=== PATIENT | female | born 1955 | race Caucasian/White ===

== ENCOUNTER 2018-08-18 11:49 | Emergency (ER) | payer MEDICARE ==
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
[2018-08-18 12:34] VITALS: BP 170/100
--- OUTSIDE RECORDS SUMMARY | 2018-08-18 12:36 | XMS REPORT | Continuity of Care Document ---
:1955 External Reference #:[id number] Author Name Nina Turner Care Team Providers Name Role Phone Suly Agarwal MD Primary Care Physician Unavailable Payers Date Identification Numbers Payment Provider Subscriber Effective: 2016 Policy Number: [id number] [employer] Toy Gumaer PayID: [id number] [address] [place] [address] Effective: 2012 Policy Number: [id number] Medicare Blue Ppo Toy Akers Expires: 2016 PayID: [id number] [address] [address] [place] [address] Effective: 2011 Policy Number: [id number] Medicare Blue Ppo Toy Gumaer Expires: 2012 PayID: [id number] [address] [address] [place] [address] Problems Active Problems Provider Date Morbid obesity Lizet Almendarez M.D. Onset: 10/02/2011 Lymphedema Lizet Almendarez M.D. Onset: 10/02/2011 Arthralgia of the ankle and/or foot Lizet Almendarez M.D. Onset: 10/02/2011 Impaired fasting glycaemia Lizet Almendarez M.D. Onset: 12/16/2011 Pure hypercholesterolemia Lizet Almendarez M.D. Onset: 12/16/2011 Neuromyelitis optica Bonnie Harry M.D. Onset: 09/08/2014 Malignant tumor of thyroid gland Bonnie Harry M.D. Onset: 09/08/2014 Obstructive sleep apnea syndrome Larisa Bowman MD Onset: 05/20/2016 Family History Date Family Member(s) Observation Comments Father due to IA () Mother due to Breast Cancer () - metastasis Siblings 1 1 brother- Social History Type Date Description Comments Sex Unknown Marital Status Occupation Disabled ETOH Use Drinks 3 Alcoholic Beverages Per Week Tobacco Use Start: Unknown End: Patient is a former Smoked for 5 yrs Unknown smoker quit in 1989 Recreational Drug Use Denies Drug Use Smoking Status Reviewed: 08/06/18 Patient is a former Smoked for 5 yrs smoker quit in 1989 Exercise Type/Frequency Does not exercise Allergies, Adverse Reactions, Alerts Active Allergies Reaction Severity Comments Date Sulfa high temp Moderate 10/02/2011 Rocephin low temp, black urine, turned Severe 10/02/2011 blue Heparin bruising Moderate 10/02/2011 Codeine vomiting Moderate 10/02/2011 Cephalosporins BP drop, blue lips 06/19/2016 Cellcept lymphadema 07/04/2016 Medications Active Medications SIG Qnty Indications Ordering Date Provider Levothyroxine Sodium 1 by mouth every Lan S. 07/03/2016 day Palacio, DO FACC 50mcg Tablets Oxygen please use o2 at 1units Larisa Bowman, 06/14/2016 Misc 2l/min during MD exertion Magnesium liquid by mouth Unknown 05/17/2016 600mg every day Digestive Aid three times a day Unknown B Complex 1 by mouth every Unknown Capsules day Ashwagandha every day Unknown 500mg Capsules Selenium 4 tablet a day Unknown 50mcg Tablets Ginkgo Biloba Extract takes occasionally Unknown 40mg Capsules Silica 3 caps po once Unknown 12.5mg Capsules daily Chromium 1 tab po tid Unknown Vitamin D3 Maximum 2 by mouth every 8caps Unknown Strength day 5000Unit Capsules Phoenix 3-6-9 Complex once daily Unknown Capsules History Medications Selenium does not know Unknown 05/17/2016 - Capsules dose 06/19/2016 Levoxyl one by mouth Unknown 05/17/2016 - 50mcg Tablets once daily 06/19/2016 Iodine Strong (Lugol's) 20 gtt po daily Unknown - Solution 05/17/2016 Apricot Seed 30 seeds po Unknown - daily 05/17/2016 Nystatin apply twice a Unknown - Powder day until rash 07/03/2016 clears Bupropion HCL 1 by mouth once Unknown - 75mg Tablets a day 07/03/2016 Curcumin Extract gelcap daily Unknown - 95% Powder 04/08/2018 Levothyroxine Sodium one by mouth Unknown - 25mcg Tablets once daily 07/04/2016 Resveratrol 1 capsule daily Unknown - 100mg Capsules 07/03/2016 Multivitamin Women 1 by mouth Unknown - Tablets every day 03/16/2018 Adderall 1/2 tablet as Unknown - 20mg Tablets needed 08/06/2018 Probiotic 1 by mouth Unknown - Capsules every day 04/08/2018 Glucosamine Chondroitin 3 by mouth Unknown - Collagen every day 05/24/2018 250-200-116.67mg Capsules [facility] Claudio Wort daily Unknown - 300mg Capsules 05/24/2018 Mindi Root Unknown - Powder 05/24/2018 Mushroom Powder Unknown - 05/24/2018 Licorice Root Unknown - Powder 08/06/2018 Quercetin 4 by mouth Unknown - 250mg Tablets every day 05/17/2016 Vitamin E 2 caps po daily Unknown - 05/17/2016 Vitamin A 1 tab po daily Unknown - 05/17/2016 Vitamin C 2 oz po tid Unknown - Solution 05/17/2016 Co Q 10 1 cap po daily Unknown - 05/17/2016 Turmeric 4 by mouth Unknown - 450mg Capsules every day 05/17/2016 Lasix 1 po daily Unknown - 07/08/2013 Angel-Mag 2 po qd Unknown - 1000-500mg Tablets 08/03/2013 Glucosamine Chondroitin 1 po qd Unknown - 1500 Complex 07/08/2013 1500Com Capsules Vitamin C CR 4 tablets daily Unknown - 500mg Capsules ER (2000 mg) 07/08/2013 Amphetamine/Dextroamphetami Take 1 tablet 60tabs Lizet Almendarez, - ne 20mg twice daily as M.D. 07/08/2013 Tablets needed for add Klor-Con 1 po qd 30units Unknown - 20Meq Packet 07/08/2013 Hydrochlorothiazide Unknown - 07/30/2012 Gabapentin 2 tabs po bid 120tabs Bonnie Ascencio. - 600mg Tablets Aamir Harry 09/07/2014 Mycophenolate Mofetil 1 po bid 60tabs Bonnie M. - 500mg Tablets Aamir Harry 09/07/2014 Vital Signs Date Vital Result Comment 08/06/2018 10:39am Height 64 inches 5'4" Weight 344.12 lb Heart Rate 68 /min BP Systolic Sitting 140 mmHg BP Diastolic Sitting 82 mmHg Pain Level 6 O2 % BldC Oximetry 97 % BMI (Body Mass Index) 59.1 kg/m2 05/25/2018 9:52am Height 64 inches 5'4" Weight 340.38 lb Heart Rate 82 /min BP Systolic 144 mmHg BP Diastolic 88 mmHg BMI (Body Mass Index) 58.4 kg/m2 04/09/2018 3:59pm Height 64 inches 5'4" Weight 347.00 lb w/shoes Heart Rate 79 /min BP Systolic Sitting 145 mmHg BP Diastolic Sitting 75 mmHg BMI (Body Mass Index) 59.6 kg/m2 03/17/2018 10:50am Height 64 inches 5'4" Weight 346.38 lb Heart Rate 80 /min BP Systolic Sitting 140 mmHg BP Diastolic Sitting 90 mmHg Respiratory Rate 17 /min BMI (Body Mass Index) 59.4 kg/m2 08/07/2016 11:41am Height 64 inches 5'4" Weight 344.25 lb w/o shoes Heart Rate 72 /min BP Systolic Sitting 112 mmHg LA lg cuff BP Diastolic Sitting 80 mmHg LA lg cuff O2 % BldC Oximetry 97 % 2L BMI (Body Mass Index) 59.1 kg/m2 07/04/2016 8:56am Height 64 inches 5'4" Weight 346.00 lb no shoes Heart Rate 66 /min BP Systolic 142 mmHg Rfa reg cuff BP Diastolic 96 mmHg Rfa reg cuff BP Systolic Sitting 146 mmHg Lfa reg cuff BP Diastolic Sitting 92 mmHg Lfa reg cuff Respiratory Rate 20 /min BMI (Body Mass Index) 59.4 kg/m2 Ejection Fraction 55-60% 06/24/2016-echo 05/20/2016 7:26am Height 64 inches 5'4" Weight 340.00 lb Heart Rate 68 /min BP Systolic Sitting 126 mmHg BP Diastolic Sitting 74 mmHg Respiratory Rate 14 /min O2 % BldC Oximetry 98 % BMI (Body Mass Index) 58.4 kg/m2 Neck Circumference in inches 19 09/08/2014 9:23am Height 62.75 inches 5'2.75" Weight 319.00 lb Heart Rate 68 /min BP Systolic Sitting 120 mmHg BP Diastolic Sitting 64 mmHg Respiratory Rate 16 /min BMI (Body Mass Index) 57.0 kg/m2 08/03/2013 10:45am Height 62.75 inches 5'2.75" Weight 320.00 lb Heart Rate 68 /min BP Systolic Sitting 126 mmHg BP Diastolic Sitting 68 mmHg Respiratory Rate 16 /min BMI (Body Mass Index) 57.1 kg/m2 05/07/2012 8:42am Heart Rate 64 /min BP Systolic Sitting 132 mmHg BP Diastolic Sitting 72 mmHg Respiratory Rate 16 /min 04/06/2012 3:07pm Height 62.75 inches 5'2.75" Weight 319.00 lb Heart Rate 64 /min BP Systolic Sitting 138 mmHg BP Diastolic Sitting 84 mmHg BMI (Body Mass Index) 57.0 kg/m2 12/16/2011 9:19am Height 62.75 inches 5'2.75" Weight 322.00 lb Heart Rate 68 /min BP Systolic Sitting 130 mmHg BP Diastolic Sitting 60 mmHg BMI (Body Mass Index) 57.5 kg/m2 11/04/2011 11:55am Height 62.75 inches 5'2.75" Weight 326.00 lb Heart Rate 64 /min BP Systolic Sitting 106 mmHg BP Diastolic Sitting 62 mmHg BMI (Body Mass Index) 58.2 kg/m2 10/02/2011 9:15am Height 62.75 inches 5'2.75" Weight 330.00 lb Heart Rate 62 /min BP Systolic Sitting 116 mmHg BP Diastolic Sitting 70 mmHg BMI (Body Mass Index) 58.9 kg/m2 Results Test Date Facility Test Result H/L Range Note CBC Auto Diff 04/09/2018 [facility] White Blood 7.4 10^3/uL N 3.5-10.[address] [place] [address] [phone] Red Blood Count 4.58 10^6/uL N 4.00-5.40 Hemoglobin 13.3 g/dL N 12.0-16.0 Hematocrit 40 % N 35-47 Mean Corpuscular Volume 87 fL N 80-97 Mean Corpuscular Hemoglobin 29 pg N 27-31 Mean Corpuscular HGB Conc 33 g/dL N 31-36 Red Cell Distribution Width 14 % N 10.5-15 Platelet Count 231 10^3/uL N 150-450 Mean Platelet Volume 9.5 fL N 7.4-10.4 Abs Neutrophils 4.6 10^3/uL N 1.5-7.7 Abs Lymphocytes 1.8 10^3/uL N 1.0-4.8 Abs Monocytes 0.7 10^3/uL N 0-0.8 Abs Eosinophils 0.2 10^3/uL N 0-0.6 Abs Basophils 0.1 10^3/uL N 0-0.2 Abs Nucleated RBC 0 10^3/uL Granulocyte % 62.4 % Lymphocyte % 24.4 % Monocyte % 9.6 % Eosinophil % 2.6 % Basophil % 1.0 % Nucleated Red Blood Cells % 0.1 Laboratory test 04/09/2018 [facility] TSH (Thyroid 2.80 mcIU/mL N 0.34-5.[address] Stim Horm) [place] [address] [phone] Free T4 (Free Thyroxine) 0.98 ng/dL N 0.61-1.12 T3 Free 3.30 pg/mL N 2.5-3.9 Laboratory test 04/09/2018 [facility] Erythrocyte Sed 40 mm/Hr N 0-[address] [place] [address] [phone] Phosphorus 3.4 mg/dL N 2.5-5.0 Magnesium 2.1 mg/dL N 1.9-2.7 C Reactive Protein 81.45 mg/L High <8.01 Vitamin B12 656 pg/mL N 180-914 1 Laboratory test 07/08/2016 [facility] B-Type 41 pg/mL N [address] [place] [address] Peptide BNP [phone] CBC Auto Diff 05/02/2014 [facility] White Blood Count 5.4 10^3/ uL N 4.8-[address]8 [place] [address] [phone] Red Blood Count 4.56 10^6/uL N 4.0-5.4 Hemoglobin 13.4 g/dL N 12.0-16.0 Hematocrit 40 % N 35-47 Mean Corpuscular Volume 87 fL N 80-97 Mean Corpuscular Hemoglobin 29 pg N 27-31 Mean Corpuscular HGB Conc 34 g/dL N 31-36 Red Cell Distribution Width 14 % N 10.5-15 Platelet Count 237 10^3/uL N 150-450 Mean Platelet Volume 10 um3 N 7.4-10.4 Abs Neutrophils 3.1 10^3/uL N 1.5-7.7 Abs Lymphocytes 1.6 10^3/uL N 1.0-4.8 Abs Monocytes 0.6 10^3/uL N 0-0.8 Abs Eosinophils 0.1 10^3/uL N 0-0.6 Abs Basophils 0 10^3/uL N 0-0.2 Abs Nucleated RBC 0 10^3/uL N Granulocyte % 58.0 % N 38-83 Lymphocyte % 29.0 % N 25-47 Monocyte % 10.3 % High 1-9 Eosinophil % 2.0 % N 0-6 Basophil % 0.7 % N 0-2 Nucleated Red Blood Cells % 0.1 N Comp Metabolic Panel 05/02/2014 [facility] Sodium 137 mmol/L N 133-[address] [place] [address] [phone] Potassium 4.4 mmol/L N 3.5-5.0 Chloride 103 mmol/L N 101-111 Co2 Carbon Dioxide 28 mmol/L N 22-32 Anion Gap 6 mmol/L N 2-11 Glucose 99 mg/dL N 70-100 Blood Urea Nitrogen 16 mg/dL N 6-24 Creatinine 0.81 mg/dL N 0.51-0.95 BUN/Creatinine Ratio 19.8 N 8-20 Calcium 9.7 mg/dL N 8.6-10.3 Total Protein 7.2 g/dL N 6.4-8.9 Albumin 4.3 g/dL N 3.2-5.2 Globulin 2.9 g/dL N 2-4 Albumin/Globulin Ratio 1.5 N 1-3 Total Bilirubin 0.50 mg/dL N 0.2-1.0 Alkaline Phosphatase 97 U/L N 34-104 Alt 21 U/L N 7-52 Ast 18 U/L N 13-39 Egfr Non- 71.9 N >60 Egfr 92.4 N >60 4 Lipid Profile 05/02/2014 [facility] Triglycerides 176 mg/dL N 5 (Trig/Chol/HDL) [address] [place] [address] [phone] Cholesterol 192 mg/dL N 6 HDL Cholesterol 37.3 mg/dL N 7 LDL Cholesterol 120 mg/dL N 8 Laboratory test 05/02/2014 [facility] Hemoglobin A1c 6.2 % High Less than [address] 6[address]0 [place] [address] [phone] Laboratory test 05/02/2014 [facility] T4 5.20 Low 6.09-12.[address] g/dL 3 [place] [address] [phone] Total T3 1.05 ng/mL N 0.87-1.78 TSH (Thyroid Stimulating Horm) 2.47 IU/mL N 0.34-5.60 Vitamin D 1,25-Dihydroxy 70 pg/mL N 18-78 10 Cytology Non-Laundry Operator Wash Room 04/20/2014 [facility] Raquel RUN DATE: [address] 04/20/ <[place] [address] NOTE> [phone] Cytology Non-Laundry Operator Wash Room 10/10/2011 [facility] Cytology Non Laundry Operator Wash Room -------- ----- [address] --- <[place] [address] NOTE> [phone] 1 Normal Range 180 to 914 Indeterminate Range 145 to 180 Deficient Range <145 2 >100 to <200 pg/mL: likely compensated congestive heart failure (CHF) 200 to 400 pg/mL: likely moderate CHF >400 pg/mL: likely moderate to severe CHF 3 PT WAS NOT FASTING- STILL WANTED TEST DONE 4 Because ethnic data is not always readily available, this report includes an eGFR for both -Americans and non- Americans. The National Kidney Disease Education Program (NKDEP) does not endorse the use of the MDRD equation for patients that are not between the ages of 18 and 70, are , have extremes of body size, muscle mass, or nutritional status, or are non- or non-. According to the National Kidney Foundation, irrespective of diagnosis, the stage of the disease is based on the level of kidney function: Stage Description GFR(mL/min/1.73 m(2)) 1 Kidney damage with normal or decreased GFR 90 2 Kidney damage with mild decrease in GFR 60-89 3 Moderate decrease in GFR 30-59 4 Severe decrease in GFR 15-29 5 Kidney failure <15 (or dialysis) 5 Desirable <150 Borderline high 150-199 High 200-499 Very High >500 6 Desirable <200 Borderline high 200-239 High >239 7 Low <40 Desirable: 40-60 High: >60 8 Desirable <100 Near Optimal 100-129 Borderline high 130-159 High 160-189 Very High >189 9 Therapeutic target for the treatment of diabetes Mellitus patients is <7% HBA1C, and in selective patients <6.0%.Please refer to [place] Diabetes Association Diabetic care guidelines for further information. 10 Test Performed by: [place] [address] Radial Drill Press Operator: Gold Cruz II, M.D., Ph.D. 11 RUN DATE: 04/20/14 [facility] LAB LIVE PAGE 1 RUN TIME: [address] [place] [address] Specimen Inquiry Name: TOY AKERS : [address]: Arpit Campbell MD Acct: [id number] Unit: [id number] AGE: 59 Location: LAB Re04/20/14 SEX: F Status: REG REF SPEC: [id number] YOLIS: 04/20/14-[address] [facility] [address]: Stepan Sullivan MD REQ: [id number] RECD: 04/20/14 STATUS: KINGS ALVAREZ DR: Arpit Agarwal MD _ ORDERED: FN ASP SUPERFIC, FN ASP PALP, FNA IMMEDIATE S, PATH CONSULT FINAL DIAGNOSIS Thyroid, left, fine needle aspiration by palpation: Malignant-papillary carcinoma of thyroid, follicular variant. See comment. The aspirate smears are moderately to amply cellular and demonstrate numerous cohesive cellular aggregates demonstrating vaguely follicular architecture with associated inspissated small colloid aggregates. The cell population demonstrates variable nuclear size with irregular contours nuclear grooves and occasional intranuclear inclusions noted chromatin demonstrates fine yusef chromatin pattern with occasional nucleoli noted. On air dried smears scattered cells demonstrating septate cytoplasmic micro-vacuoles are noted as are scattered multi nucleated giant cells. Cytologic features are diagnostic of papillary carcinoma of thyroid with architectural pattern indicating a predominantly follicular architecture. Appropriate surgical therapeutic intervention is warranted. The procedure was explained to and understood by the patient. Signed consent was obtained and a time out procedure was performed at the bedside to verify patient identity and biopsy site. Fine needle aspiration biopsy was performed times 2 CONTINUED ON NEXT PAGE * ML=Testing performed at Main Lab DEPARTMENT OF PATHOLOGY, [facility] [place], [place] [address] Stepan Sullivan M.D. Director [facility] # [id number] RUN DATE: 04/20/14 [facility] LAB LIVE PAGE 2 RUN TIME: 6890 [facility] [address] [place], [place] [address] Specimen Inquiry Patient: TOY AKERS [id number] (Continued) SPECIMEN COMMENTS (Continued) with a 25-gauge needle on approximate 4 cm mobile left thyroid nodule. Adequacy was assessed by fast stain technique. The procedure was tolerated well without complications. Dr. Thomas has reviewed this case and concurs. THYROID LEFT - LEFT THYROID FINE NEEDLE ASPIRATION BY PALPATION CLINICAL HISTORY 4 cm left thyroid nodule. IMMEDIATE INTERPRETATION Pass 1 and 2-adequate GROSS DESCRIPTION Fine needle aspiration by palpation x 2 passes with 4 Alcohol fixed slide(s) , 3 Air dried slide(s) and Needle rinse in CytoLyt solution for thin layer non-retirement assistant test. Signed (signature on file) Stepan Sullivan MD [id number] END OF REPORT * ML=Testing performed at Main Lab DEPARTMENT OF PATHOLOGY, [address] [place] [address] Stepan Sullivan M.D. Director [facility] # [id number] 12 ---- RUN DATE: 10/11/11 [facility] NMI LIVE PAGE 1 RUN TIME: 1414 Specimen Inquiry RUN USER: INTERFACE -- Name: TOY AKERS Status: REG REF Re10/10/11 Age/Sex: 56/F Unit#: [id number] Location: [facility]. : [birth year] -- Specimen: [id number] SOUT Spec Date:10/10/11-[address]: Bret valdez MD Spec Type: CYTOLOGY Received:10/10/11-1304 Copies to: Arpit Almendarez MD SOURCE FINE NEEDLE ASPIRATION Right cervical lymph node, By Palpation. PATIENT INFORMATION ACTUAL COLLECTION DATE: 10/10/11 GROSS DESCRIPTION Fine needle aspiration by palpation x 1 pass with 2 alcohol fixed slide(s) and Needle rinse in formalin for cell block. DIAGNOSIS Right submandibular lymph node, fine needle aspiration by palpation: Non-diagnostic - fibroadipose tissue only (see comment). COMMENT A fine needle aspiration using a 25 gauge needle was performed on an ill-defined thickened right submandibular area. One pass was performed and a few slides were examined on site for adequacy. The aspirate smears and the cell block show evidence of fibroadipose tissue only. Given the vague boundaries of this lesion and the material obtained, a definitive diagnosis cannot be made at this point. If the concerns persist, fine needle aspiration by ultrasound guidance is advised. Final Interpretation electronically signed by: BRET CHAPARRO 10/11/11 1414 -- -- DEPARTMENT OF PATHOLOGY, [address] [place] [address] [facility] Permit #[id number] Stepan Sullivan M.D. Director Bret Chaparro M.D. Marketing Proposal Coordinator Dir alexandra -- Procedures Date Code Description Status 07/09/2016 46171 ECHO Transthorasic Realtime 2D W Doppler & Color Flow Completed Hosp 07/04/2016 64012 EKG Tracing & Interpretation Completed 06/24/2016 67645 ECHO Transthoracic, Real-Time 2D With Doppler And Completed Color Flow 06/14/2016 11108 Diffusing Capacity Completed 06/14/2016 68314 Plethysmography Determination Lung Volumes & Per Completed Airway Resist 06/14/2016 74407 Pulmonary Stress Test Simple Completed 06/14/2016 90886 Spirometry Incl Graphic Record Completed 01/27/2012 15688 Rad Exam; Foot Comp Completed 01/27/2012 97576 Rad Exam; Foot Comp Completed 11/29/2011 23294 Rad Exam; Foot Comp Completed 11/29/2011 49069 Rad Exam; Ankle Comp Completed 05/28/2005 238004040 Diabetic Retinal Eye Exam Completed 08/16/1996 502872568 Diabetic Retinal Eye Exam Completed 07/24/1994 549059733 Diabetic Retinal Eye Exam Completed 03/28/1994 415605817 Diabetic Retinal Eye Exam Completed Encounters Type Date Location Provider Dx Diagnosis Office Visit 04/09/2018 [facility] Bruno Junior MD E89.0 Postprocedural 4:00p [facility] hypothyroidism E04.1 Nontoxic single thyroid nodule Z68.43 Body mass index (BMI) 50-59.9, adult Office Visit 03/17/2018 [facility] [place] G36.0 Neuromyelitis 11:00a Clinic MD Fanny [facility] [[facility]] Z85.850 Personal history of malignant neoplasm of thyroid Office Visit 08/07/2016 11:30a Pulmonology And Larisa G47.33 Obstructive sleep Sleep Services Of MD Gracie apnea (adult) [facility] (pediatric) E66.01 Morbid (severe) obesity due to excess calories Z68.43 Body mass index (BMI) 50-59.9 , adult Office Visit 07/04/2016 9:00a [facility] Lan Valadez R60.0 Localized edema [facility] Palacio, DO FAC R07.9 Chest pain, unspecified Office Visit 05/20/2016 7:30a Pulmonology And Larisa G47.33 Obstructive sleep Sleep Services Of MD Gracie apnea (adult) [facility] (pediatric) E66.01 Morbid (severe) obesity due to excess calories Z68.43 Body mass index (BMI) 50-59.9 , adult Office 09/08/2014 [facility] Bonnie Villalobos 341.0 Neuromyelitis Visit 9:15a Clinic Aamir Harry [facility] 278.01 Obesity Morbid Office Visit 08/03/2013 Jamie Villalobos 341.0 Neuromyelitis 10:30a Neurologic Aamir Harry [facility] 278.01 Obesity Morbid Office Visit 08/31/2012 2:43p [facility] Cheng Deleon, 682.6 Cellulitis & Assoc,pc M.D. Abscess Leg Hospitalists Except Foot 457.1 Lymphedema Other 341.0 Neuromyelitis [facility] Office Visit 08/29/2012 2:42p [facility] Rabia Reyes, 682.6 Cellulitis & Assoc,pc DO Abscess Leg Hospitalists Except Foot 457.1 Lymphedema Other 341.0 Neuromyelitis [facility] Office Visit 05/07/2012 Jamie Villalobos 341.0 Neuromyelitis 8:30a Neurologic Aamir Harry [facility] Office Visit 04/06/2012 [facility] Internal Lizet Almendarez, 790.21 Impaired Fasting 3:00p Medicine Aamir Glucose 278.01 Obesity Morbid Office Visit 04/06/2012 11:15a Orthopedic Mark Anthony Pena6.97 Arthropathy Services Of Aamir Marte Unspec Ankle & C[facility]. Foot 094.0 Tabes Dorsalis 713.5 Arthropathy W/ Neurological Disorders Office Visit 01/27/2012 2:30p Orthopedic Mark Anthony Pena6.97 Arthropathy Services Of Aamir Marte Unspec Ankle & C.M.A. Foot 094.0 Tabes Dorsalis 713.5 Arthropathy W/ Neurological Disorders Office Visit 12/16/2011 9:00a [facility] Internal Lizet Almendarez, 278.01 Obesity Morbid Medicine Aamir 790.21 Impaired Fasting Glucose 272.0 Hypercholesterolemia Pure Office Visit 11/29/2011 11:30a Orthopedic Services Mark Anthony Marte, 719.47 Pain Joint Of [facility]. M.DCady Ankle & Foot 356.8 Neuropathy Other Spec Idiopathic Peripheral 094.0 Tabes Dorsalis 713.5 Arthropathy W/ Neurological Disorders Office Visit 11/04/2011 11:40a [facility] Internal Lizet Almendarez, 278.01 Obesity Morbid Medicine Aamir 454.8 Varicose Veins Of The Lower Extremities, W/Other Compl Office Visit 10/28/2011 Jamie Villalobos 341.0 Neuromyelitis 10:45a Neurologic Stackman, M.D. [facility] Office Visit 10/02/2011 [facility] Internal Lizet Almendarez, 278.01 Obesity Morbid 9:00a Medicine Aamir 457.1 Lymphedema Other 719.47 Pain Joint Ankle & Foot Plan of Treatment Future Appointment(s):09/14/2018 9:40 am - Marcell Batista M.D. at [facility]05/25/2018 - [place] Escobedo MDG36.0 Neuromyelitis [facility] [[facility]] Comments:Discussed with her that her mri scan shows no change in white matter spots in the past 11 years and no findings on cspine mri. No need to treat her. There was proptosis on mri and she tells me that she has a thyroid nodule and had thyroid cancer in past and that Dr Agarwal is working this up. Defer to Dr Agarwal about the treatment of the nodule and the proptosis which may be related. Discussed that in her case the elevated crp is unlikely to be tied in with her apparently inactive neurologic disease but may be significant in terms of her other issues.Follow up:2 years- sooner for problems
== END 2018-08-18 12:33 | disposition home or self-care (01) ==
LOC: ED 11:49
DX: T25.121A Burn of first degree of right foot, initial encounter (principal); T25.122A Burn of first degree of left foot, initial encounter; X12.XXXA Contact with other hot fluids, initial encounter; Y92.9 Unspecified place or not applicable; I89.0 Lymphedema, not elsewhere classified; J44.9 Chronic obstructive pulmonary disease, unspecified; Z85.3 Personal history of malignant neoplasm of breast; Z85.850 Personal history of malignant neoplasm of thyroid; Z96.641 Presence of right artificial hip joint; Z88.1 Allergy status to other antibiotic agents; Z88.5 Allergy status to narcotic agent; Z91.018 Allergy to other foods; Z88.2 Allergy status to sulfonamides; Z88.8 Allergy status to other drugs, medicaments and biological substances; Z87.891 Personal history of nicotine dependence
CPT/HCPCS: 16000; 99281